=== PATIENT | male | born 1950 | race Caucasian/White ===

== ENCOUNTER 2025-03-12 02:14 | Inpatient (IN) | payer OTHER, MEDICAID ==
[~2025-03-12] VITALS: Ht 177.8 cm; Wt 77.2 kg
[2025-03-12] VITALS (10 sets, daily range): BP systolic 114–140; BP diastolic 46–91; PULSE 68–92; RESP 17–22; TEMP 97.9–98.7; O2SAT 96–99
[~2025-03-12 02:14] MED LIST: ACET-1882 PO; ALBU108A14 IN; ASPI-543 PO; BACL20TA PO; BECL40AE11 IN; CHOL500021 OR; DOCU-265 PO; FLUT1SPR5; GABA400C PO; IBUP-1456 PO; KEP500T PO; LIDO5DIS21 TOP; LINA290C OR; NORT25CA PO; ROPI0.5T26 PO; SENN-58 PO; TAMS-35 PO; TIOTCAP IN; [UNRECOGNIZED DRUG - CODE] IN
--- NOTE | 2025-03-12 02:35 | ED.PDOC ---
SOB-HPI HPI Comments HPI: 74-year-old male who came to ER by EMS for shortness of breath. Patient picked up at home, patient woke up due to sudden onset of shortness of breath, and roommate called paramedics. Was saturating at 86% on room air on scene. Was placed at 2 lpm nasal canula and it improved to 98% Past Medical History: COPD not on home oxygen, BPH, brain tumor, seizures Surgical History: C-spine surgery, lumbar spine surgery Family History: Denies Personal And Social History: Chronic tobacco and marijuana user [place]: HPI: Poor Historian. 74-year-old male presents to emergency room for evaluation of acute respiratory distress started few hours prior to arrival woke her up from his sleep. His roommate called 911. P patient initial pulse ox was 86% on room air. He was placed on 2 L nasal cannula which increase his saturation to 98%. Patient feels improvement but he is still not back to his baseline. Denies any chest pain fever or cough. : No known drug allergies REVIEW OF SYSTEMS: CONSTITUTIONAL: Denies acute: fever, diaphoresis, chills, HEAD: Denies acute: headache, photophobia Eyes: Denies acute: Double vision, vision loss, eye pain, eye discharge. EARS: Denies acute: tinnitus, hearing loss, ear discharge, ear pain, THROAT: Denies acute: sore throat, swelling, difficulty swallowing , pain with swallowin g, change in voice. NECK: Denies acute: neck pain, neck swelling, stiff neck. HEART: Denies acute : chest pain, palpitations, LUNGS: Denies acute: wheezing, cough, hemoptysis ABDOMEN: Denies acute: abdominal pain, Nausea, Vomiting, diarrhea, melena , hematemesis, hematochezia SKIN: Denies acute: rash, redness, lesions, itchiness. EXTREMITIES: Denies acute: calf pain, numbness, tingling, weakness, denies pain in extremity. Denies acute: Low back pain. Neuro: Denies acute: focal neurological deficit, motor or sensory focal neurological deficit, tremors, seizure like activity, confusion, dizziness, change in mental status, loss of bowel or bladder function, cauda equina like symptoms. : Denies acute: dysuria, hematuria, flank pain, increase in urinary frequency. PSYCH: Denies acute: hallucination, suicidal ideation, homicidal ideation. PHYSICAL EXAM: General: ----moderate----acute distress, awake and alert. Head: normocephalic, atraumatic. No raccoon's eyes, no green sign. Neck: supple, trachea is midline, no swelling. Throat: Normal phonation. Eyes:, no erythema, no purulent discharge, no proptosis, no icterus. Heart: regular rate, regular rhythm, no significant murmur appreciated. Lungs: Moderate apparent respiratory distress, No wheezing, no rhonchi, no crackles. No stridors Clear to auscultation bilaterally. Abdomen: non tender to palpation, non distended, soft, no guarding, no rebound, + bowel sounds. History of abdominal hernia Neuro: Awake, Alert, oriented to name, self, situation, follows commands GCS=15. Speech is normal. Skin: no petechia, no purpura, no cyanosis, non-pale, not jaundice. Lower extremities: --1/4 bilateral- Pitting edema no deformity, no focal swelling, no calf TTP. Makes eye contact. moves all four extremities. Face: no apparent facial droop. ED COURSE: DISCLAIMER: This medical document was created using an electronic medical record system with voice recognition software and computerized dictation system. Although this document has been carefully reviewed, there might still be some phonetic and typographical errors. Occasional wrong-word or "sound-alike" substitutions may have occurred due to the inherent limitations of voice recognition software. These areas are purely typographical due to imperfections of the software programs and do not reflect any compromise in the patient's medical care. Please read the chart carefully and recognize, using context, where these substitutions have occurred. Chief Complaint: Shortness of Breath Time Seen by MD: 02:31 Reviewed notes: Residential Subcontractor Notes, Allergies Information Source: Patient, Emergency Med Personnel Past Medical History PAST MEDICAL HISTORY: COPD EKG EKG : Pulse Rate (adult): 92 Cardiac Rhythm: NSR Was a procedure done? Was a procedure done?: No Differential Dx Differential Diagnosis: Other (DDx include ACS, unstable angina, anxiety, PE, pneumothroax, neoplasm, cardiac ischemia, COPD, asthma, CHF, pleural effusion, tobacco abuse, pneumonia, hypoxia, hypercapnia, anemia., infection/sepsis., pulmonary edema. Asthma, Cardiac tamponade, infection.) X-Ray, Labs, Meds, VS Vital Signs Date Time Temp Pulse Resp B/P (MAP) Pulse Ox O2 Delivery O2 Flow Rate FiO2 03/12/25 02:44 24 99 Nasal Cannula* 3 32 03/12/25 02:35 92 03/12/25 02:19 92 03/12/25 02:14 97.9 104 26 140/91 98 97.9 Lab Test 03/12/25 03:26 03/12/25 02:34 Range/Units Troponin I High Sensitivity 24 23 </=54 ng/L White Blood Count 14.1 H 4.4-10.8 10^3/uL Red Blood Count 4.57 4.5-5.90 10^6/uL Hemoglobin 14.8 13.5-17.5 g/dL Hematocrit 44.4 41.0-53.0 % Mean Corpuscular Volume 97.1 80.0-100.0 fL Mean Corpuscular Hemoglobin 32.4 H 28.0-32.0 pg Mean Corpuscular Hemoglobin Concent 33.4 32.0-36.0 g/dL Red Cell Distribution Width 14.1 11.8-14.3 % Platelet Count 278 140-450 10^3/uL Mean Platelet Volume 7.7 6.9-10.8 fL Neutrophils (%) (Auto) 77.7 37.0-80.0 % Lymphocytes (%) (Auto) 15.8 10.0-50.0 % Monocytes (%) (Auto) 4.9 0.0-12.0 % Eosinophils (%) (Auto) 1.3 0.0-7.0 % Basophils (%) (Auto) 0.3 0.0-2.0 % Neutrophils # (Auto) 11.0 H 1.6-8.6 10 ^3/uL Lymphocytes # (Auto) 2.2 0.4-5.4 10 ^3/uL Monocytes # (Auto) 0.7 0-1.3 10 ^3/uL Eosinophils # (Auto) 0.2 0-0.8 10 ^3/uL Basophils # (Auto) 0 0-0.2 10 ^3/uL Nucleated Red Blood Cells 0.0 % Sodium Level 143 136-145 mmol/L Potassium Level 4.8 3.5-5.1 mmol/L Chloride Level 110 H 98-107 mmol/L Carbon Dioxide Level 33 H 20-31 mmol/L Anion Gap 0 L 5-15 Blood Urea Nitrogen 11 9-23 mg/dL Creatinine 0.73 0.700-1.30 mg/dL Glomerular Filtration Rate Calc 95 >90 mL/min BUN/Creatinine Ratio 15.1 10.0-20.0 Serum Glucose 100 74-106 mg/dL Calcium Level 9.0 8.7-10.4 mg/dL Magnesium Level 2.0 1.6-2.6 mg/dL Total Bilirubin 0.4 0.2-1.0 mg/dL Aspartate Amino Transferase (AST) 20 13-40 U/L Alanine Aminotransferase (ALT) 27 7-40 U/L Alkaline Phosphatase 147 H 46-116 U/L B-Type Natriuretic Peptide 57.16 0-100 pg/mL Total Protein 6.8 5.7-8.2 g/dL Albumin 3.9 3.2-4.8 g/dL Current Medications Medications (Trade) Dose Ordered Sig/Faith Route Start Time Stop Time Status Last Admin Albuterol (Ventolin Medneb) 2.5 mg ONCE ONCE NEB 03/12/25 02:30 03/12/25 02:31 DC 03/12/25 02:44 Ipratropium [place] (Atrovent Medneb) 1 mg ONCE ONCE NEB 03/12/25 02:30 03/12/25 02:31 DC 03/12/25 02:44 Methylprednisolone Sodium Succinate (Solu Medrol) 125 mg ONCE ONCE IV 03/12/25 02:30 03/12/25 02:31 DC 03/12/25 04:[address] [address] Ph: [phone] DIAGNOSTIC IMAGING Diagnostic Imaging Report : [id number] Signed PATIENT: BUDDY MEDINA ACCT: [id number] UNIT: [id number] : 1950 LOC: ER ROOM / BED: / AGE / SEX: 74 / M ADM STATUS: REG ER SERVICE ORDERING PHYSICIAN: BRIANA RINALDI DO PROCEDURE(s): CXRP - CHEST PORTABLE REASON: sob ORDER NUMBER(s): [id number], ACCESSION NUMBER(s): [id number] CHEST RADIOGRAPH Indication: sob Technique: Single frontal view of the chest was obtained COMPARISON: CT CHEST ILD PROTOCOL on DOS: 08/20/24 FINDINGS: Lines and Tubes: None Lungs: Clear Pleura: No effusion. No pneumothorax. Cardiomediastinal contours: Unremarkable Bones: Unremarkable. Cervical spine fixation hardware. IMPRESSION: 1. No radiographic evidence of acute ATED BY: CHRISTOPHE DAY MD DICTATED DATE/TIME: 03/12/25431 SIGNED BY: CHRISTOPHE DAY MD SIGNED DATE/TIME: 03/12/25431 CC: Time of 1ST Reevaluation: 02:32 Reevaluation 1ST: Unchanged Time of 2ND Reevaluation: 04:33 (The case was discussed with the admitting team (HPI, physical exam, labs and diagnostic tests that were available at the time of disposition, ED course, treatment plan) on the phone. They agreed to evaluate the patient and make the final disposition SABRINA Zapata. ) Reevaluation 2ND: Improved Patient Education/Counseling: Diagnosis, Treatment Family Education/Counseling: No Family Present Comments MDM: patient presented with the above HPI.---dyspnea---workup was initiated. patient was found with the above mentioned diagnosis. the following medications were ordered: please refer to order lists of meds and tests obtained by myself Dr. Rinaldi. Patient ED course and VS have been stabilized. Patient has been reassessed in the ED and remained in a stable condition. Pertinent incidental findings were discussed with the patient and/or family. Patient/family voices understanding and is agreeable with plan. Patient has been observed in the ED adequate length of time to insure improvement/stability. Escalation of care considered: Consideration of escalation to observation or admission Patient was hypoxic at home. Patient was placed on supplemental oxygen which improved his pulse ox. Patient is given breathing treatment. Patient was ADMITTED to the medicine team for further evaluation and treatment of their presentation. I suspect that the admitting team my discharge the patient home with home oxygen. Please see their consultation and final disposition. All the reports of any imaging studies that were ordered by myself were reviewed by myself. SEPSIS Sepsis Screen Physician Orders Electrocardigram (03/12/25 02:24) Personal Investment Adviser (03/12/25 ) Urinalysis (03/12/25 02:25) Drug Screen (03/12/25 02:25) Chest Portable (03/12/25 02:25) Troponin-I Hs (03/12/25 05:25) Vital Signs Date Time Temp Pulse Resp B/P (MAP) Pulse Ox O2 Delivery O2 Flow Rate FiO2 03/12/25 02:44 24 99 Nasal Cannula* 3 32 03/12/25 02:35 92 03/12/25 02:19 92 03/12/25 02:14 97.9 104 26 140/91 98 97.9 Laboratory Tests Test 03/12/25 02:34 White Blood Count 14.1 10^3/uL (4.4-10.8) H Medications Medications Dose Ordered Sig/Faith Route Start Time Stop Time Status Last Admin Dose Admin Albuterol 2.5 mg ONCE ONCE NEB 03/12/25 02:30 03/12/25 02:31 DC 03/12/25 02:44 Ipratropium [place] 1 mg ONCE ONCE NEB 03/12/25 02:30 03/12/25 02:31 DC 03/12/25 02:44 Methylprednisolone Sodium Succinate 125 mg ONCE ONCE IV 03/12/25 02:30 03/12/25 02:31 DC 03/12/25 04:28 Departure 1 Departure Time of Disposition: 03:19 Impression: Primary Impression: COPD exacerbation Additional Impressions: Hypoxemia Acute respiratory distress Disposition: ADMITTED INPATIENT Admit to: [facility] Condition: Guarded Discharged With: Self Critical Care Note Critical Care Time?: Yes (45 min-critical care time only) Heart Score Heart Score: Heart Score Response (Comments) Value History Slightly Suspicious 0 EKG Normal 0 Age >65 2 Risk Factors 1 or 2 risk factors 1 Troponin Normal limit 0 Total 3 I personally scribed for BRIANA RINALDI DO ([email or web address]) on 03/12/25 at 02:34. Electronically submitted by Konrad Chou ([email or web address]). BRIANA RINALDI DO Mar 12, 2025 02:34
[2025-03-12] MEDS: IPRATROPIUM BROM 0.5 MG/2.5ML INH SOL NEB ONE (02:44)
[2025-03-12] MEDS: ALBUTEROL SULF 2.5 MG/0.5ML(0.5%) NEB SOLN NEB ONE (02:44)
[2025-03-12 02:55] LABS: Hematocrit 44.4 % (41.0-53.0); Hemoglobin 14.8 g/dL (13.5-17.5); Mean Corpuscular Hemoglobin 32.4 pg (28.0-32.0); Mean Corpuscular Volume 97.1 fL (80.0-100.0); Nucleated Red Blood Cells % 0.0 %
[2025-03-12 03:05] LABS: Alanine Aminotransferase 27 U/L (7-40); Albumin 3.9 g/dL (3.2-4.8); Anion Gap 0 (5-15); BUN/Creatinine Ratio 15.1 (10.0-20.0); Bilirubin, Total 0.4 mg/dL (0.2-1.0); Blood Urea Nitrogen 11 mg/dL (9-23); Calcium 9.0 mg/dL (8.7-10.4); Glucose 100 mg/dL (74-106); Magnesium 2.0 mg/dL (1.6-2.6); Potassium 4.8 mmol/L (3.5-5.1); Sodium 143 mmol/L (136-145); Total Protein 6.8 g/dL (5.7-8.2)
[2025-03-12 03:37] LABS: Alkaline Phosphatase 147 U/L (46-116); Carbon Dioxide 33 mmol/L (20-31); Chloride 110 mmol/L (98-107)
[2025-03-12] MEDS: methylPREDNISolone SOD SUCC 125 MG/2 ML VL IV ONE (04:28)
--- NOTE | 2025-03-12 04:35 | DVH ---
CHEST RADIOGRAPH Indication: sob Technique: Single frontal view of the chest was obtained COMPARISON: CT CHEST ILD PROTOCOL on DOS: 08/20/24 FINDINGS: Lines and Tubes: None Lungs: Clear Pleura: No effusion. No pneumothorax. Cardiomediastinal contours: Unremarkable Bones: Unremarkable. Cervical spine fixation hardware. IMPRESSION: 1. No radiographic evidence of acute
[2025-03-12] MEDS ORDERED: ONDANSETRON HCL 4 MG/2 ML VIAL IV PRN (06:15)
--- NOTE | 2025-03-12 06:18 | DVHHP2 ---
Admitting Diagnosis: Acute COPD exacerbation, acute respiratory failure with hypoxia History of Present Illness History Source: Patient Exam Limitations: No limitations HPI Mr. Yariel Pitts is a 74-year-old male with a history of COPD , BPH, Brain tumor, Seizures, c spine surgery who presents for evaluation of acute respiratory distress started few hours prior to arrival, patient woke up from his sleep. His roommate called 911. Patient initial pulse ox was 86% on room air. He was placed on 2 L nasal cannula which increase his saturation to 98%. Patient feels improvement but he is still not back to his baseline. Patient reports he was on oxygen at home but states he is a fall risk and stopped wearing his oxygen. Patient reports he smokes 1 pack of cigarettes daily. Denies any chest pain fever or cough. Home Meds Active Scripts Aspirin (Aspir-Low) 81 Mg Tab, 81 MG PO DAILY for 20 Days, #20 TAB Prov:JOANIE BARRIENTOS JEWEL HOLE DRILLER 11/16/22 Docusate Sodium (Docusate Sodium) 100 Mg Cap, 250 MG PO BID for 20 Days, #30 CAP Prov:JOANIE BARRIENTOS JEWEL HOLE DRILLER 11/16/22 Acetaminophen (Acetaminophen) 325 Mg Tab, 650 MG PO Q6HP PRN for 10 Days, #80 TAB Prov:JOANIE BARRIENTOS JEWEL HOLE DRILLER 11/16/22 Reported Medications Oxycodone W/ Acetaminophen (Percocet 5/325MG) 1 Tab Tb, 1 TAB PO TID, #90 TAB 03/12/25 Cholecalciferol (VITAMIN D) 5,000 Unit Tab, 5000 UNIT OR DAILY, TAB 11/08/22 Tiotropium [place] Monohydrate (Spiriva Handihaler) 18 Mcg Cap, 18 MCG IN DAILY, CAP 11/08/22 Tamsulosin Hcl (Flomax) 0.4 Mg Cap, 0.4 MG PO DAILY, CAP 11/08/22 Senna (Senokot) 8.6 Mg Tab, 8.6 MG PO BID, TAB 11/08/22 Ropinirole Hydrochloride (Ropinirole Hcl) 0.5 Mg Tab, 0.5 MG PO HS, TAB 11/08/22 Albuterol Sulfate (Proair Digihaler) 108 Mcg/Act Aer, 108 MCG IN PRN, AER 11/08/22 Nortriptyline Hcl (PAMELOR CAPSULE) 25 Mg Cp, 25 MG PO QPM, CAP 11/08/22 Lidocaine (LIDODERM 5% TOPICAL PATCH) 1 Patch Ph, 1 PATCH TOP UD, PATCH 11/08/22 Mometasone Furoate (Asmanex Hfa) 100 Mcg/Act Aer, 100 MCG IN BID, AER 11/08/22 Linaclotide Base (LINZESS) 290 Mcg Cap, 290 MCG OR DAILY, CAP 11/08/22 Levetiracetam (KEPPRA TABLET) 500 Mg Tb, 500 MG PO BID, TAB 11/08/22 Ibuprofen (Ibuprofen) 800 Mg Tab, 800 MG PO Q8HP, TAB 11/08/22 Gabapentin (Neurontin) 400 Mg Cap, 800 MG PO TID, CAP 11/08/22 Fluticasone Propionate (Nasal) (Flonase Allergy Relief) 50 Mcg/Act Spr, 50 MCG NA BID, SPRAY 11/08/22 Beclomethasone Dipropionate (Qvar Redihaler) 40 Mcg/Act Aer, 40 MCG IN BID, AER 11/08/22 Baclofen (Baclofen) 20 Mg Tab, 10 MG PO TID, TAB 11/08/22 Past Medical History Cardiac: No pertinent Hx Pulmonary: COPD Central Nervous System: Seizure, Other (Brain tumor) GI: No pertinent Hx Hemotology/Oncology: No pertinent Hx Hepatobiliary: No pertinent Hx Psychiatric: No pertinent Hx Musculoskeletal: No pertinent Hx Rheumotologic: No pertinent Hx Infectious Disease: No peritnent Hx ENT: No pertinent Hx Renal/: Benign prostatic enlarg. Endocrine: No pertinent Hx Dermatology: No pertinent Hx Others C-spine surgery Patient Family History: Alzheimer's disease G8 FATHER FH: pancreatic cancer G8 BROTHER FHx: cancer of ovary G8 MOTHER Smoker: 1 pack per day Alocohol: None Drugs: None Lives with: With family Domestic Violence: Neg Review of Systems Constitutional: No symptom reported Ears, Nose, & Throat: No symptom reported Eyes: No symptom reported Pulmonary/Respiratory: Dyspnea Cardiovascular: No symptom reported Gastrointestinal: No symptom reported Genitourinary: No symptom reported Musculoskeletal: No symptom reported Skin: No symptom reported Psychiatric: No symptom reported Endocrine: No symptom reported Hemotologic/Lymphatic: No symptom reported H&P Exam Vital Signs Vital Signs Date Time Temp Pulse Resp B/P (MAP) Pulse Ox O2 Delivery O2 Flow Rate FiO2 11/7/25 02:44 24 99 Nasal Cannula* 3 32 03/12/25 02:35 92 03/12/25 02:14 97.9 140/91 97.9 General Appeara: Well developed, Well nourished, Normal Appearance Head Exam: Normal inspection Neck Exam: Normal inspection, Non-tender, Normal alignment Eye Exam: bilateral eye Normal inspection, bilateral eye PERRL, bilateral eye EOMI Ear Exam: bilateral ear Auricle normal Nasal Exam: Normal inspection Mouth: Normal Inspection Pulmonary/Respiratory: Normal inspection, Decreased breath sounds Cardiovascular/Chest: Normal inspection, Regular rate, Normal Rhythm Peripheral Pulses: 2+ dorsalis pedis (R), 2+ dorsalis pedis (L), 2+ Radial (R), 2+ Radial (L) Abdominal Exam: Normal bowel sounds, Soft, No tenderness Legs: bilateral leg swelling CHEESE CUTTER Exam: Normal hearing, Normal speech, PERRL Neuro/Mental St: Alert, Oriented Appearance: Appropriate appearance, Appropriate insight Eye contact/ Speech: Cooperative, Good eye contact, Normal speech Thoughts/Psych: Normal thought pattern Skin Exam: Normal inspection, Normal color, Warm/dry SEPSIS Sepsis Screen Date sepsis recognized/suspect: Mar 12, 2025 Time Sepsis recognized/suspect: 213 Recent Procedure: No On Antibiotic Therapy: No Respiratory Rate >20: No Heart Rate >90: No Temp<36 C (96.8 F) or >38.3 C: No SBP <90 or MAP <65 mmHG: No New Acute Mental Status Change: No Is the patient on CPAP, BIPAP,: No Physician Orders Electrocardigram (03/12/25 02:24) Tow Feeder (03/12/25 ) Urinalysis (03/12/25 02:25) Drug Screen (03/12/25 02:25) Chest Portable (03/12/25 02:25) Troponin-I Hs (03/12/25 05:25) Admit (03/12/25 06:01) 2 Gm Sodium Diet (03/12/25 Breakfast) B-Type Natriuretic Peptide (03/12/25 06:01) Complete Blood Count (03/13/25 04:00) * Smoking Cessation Consult (03/12/25 ) Education - Smoking Cessation (03/12/25 06:01) Stat Ekg For Chest Pain (03/12/25 06:01) Notify Of Changes From Base (03/12/25 06:01) Cullet Crusher For 24 Hours (03/12/25 06:01) Emergency Dysrhythmia Protocol (03/12/25 06:01) Rhythm Strips Once Every Shift (03/12/25 06:01) Oxygen By Nasal Cannula (03/12/25 06:01) Ipratropium Medneb (Atrovent Medneb) (03/12/25 12:00) Albuterol Medneb (Ventolin Medneb) (03/12/25 06:15) Methylprednisolone Sod Succ (Solu Medrol (03/12/25 10:00) Ondansetron Hcl (Zofran) (03/12/25 06:15) *Consult (03/12/25 06:01) Full Code (03/12/25 06:01) * Inspector Penetrant Consult (03/12/25 ) Vital Signs Date Time Temp Pulse Resp B/P (MAP) Pulse Ox O2 Delivery O2 Flow Rate FiO2 03/12/25 02:44 24 99 Nasal Cannula* 3 32 03/12/25 02:35 92 03/12/25 02:19 92 03/12/25 02:14 97.9 104 26 140/91 98 97.9 Laboratory Tests Test 03/12/25 02:34 White Blood Count 14.1 10^3/uL (4.4-10.8) H Medications Medications Dose Ordered Sig/Faith Route Start Time Stop Time Status Last Admin Dose Admin Albuterol 2.5 mg ONCE ONCE NEB 03/12/25 02:30 03/12/25 02:31 DC 03/12/25 02:44 2.5 MG Ipratropium [place] 1 mg ONCE ONCE NEB 03/12/25 02:30 03/12/25 02:31 DC 03/12/25 02:44 1 MG Methylprednisolone Sodium Succinate 125 mg ONCE ONCE IV 03/12/25 02:30 03/12/25 02:31 DC 03/12/25 04:28 125 MG Labs/Xrays Labs Test 03/12/25 05:27 03/12/25 02:34 Range/Units White Blood Count 14.1 H 4.4-10.8 10^3/uL Red Blood Count 4.57 4.5-5.90 10^6/uL Hemoglobin 14.8 13.5-17.5 g/dL Hematocrit 44.4 41.0-53.0 % Mean Corpuscular Volume 97.1 80.0-100.0 fL Mean Corpuscular Hemoglobin 32.4 H 28.0-32.0 pg Mean Corpuscular Hemoglobin Concent 33.4 32.0-36.0 g/dL Red Cell Distribution Width 14.1 11.8-14.3 % Platelet Count 278 140-450 10^3/uL Mean Platelet Volume 7.7 6.9-10.8 fL Neutrophils (%) (Auto) 77.7 37.0-80.0 % Lymphocytes (%) (Auto) 15.8 10.0-50.0 % Monocytes (%) (Auto) 4.9 0.0-12.0 % Eosinophils (%) (Auto) 1.3 0.0-7.0 % Basophils (%) (Auto) 0.3 0.0-2.0 % Neutrophils # (Auto) 11.0 H 1.6-8.6 10 ^3/uL Lymphocytes # (Auto) 2.2 0.4-5.4 10 ^3/uL Monocytes # (Auto) 0.7 0-1.3 10 ^3/uL Eosinophils # (Auto) 0.2 0-0.8 10 ^3/uL Basophils # (Auto) 0 0-0.2 10 ^3/uL Nucleated Red Blood Cells 0.0 % Sodium Level 143 136-145 mmol/L Potassium Level 4.8 3.5-5.1 mmol/L Chloride Level 110 H 98-107 mmol/L Carbon Dioxide Level 33 H 20-31 mmol/L Anion Gap 0 L 5-15 Blood Urea Nitrogen 11 9-23 mg/dL Creatinine 0.73 0.700-1.30 mg/dL Glomerular Filtration Rate Calc 95 >90 mL/min BUN/Creatinine Ratio 15.1 10.0-20.0 Serum Glucose 100 74-106 mg/dL Calcium Level 9.0 8.7-10.4 mg/dL Magnesium Level 2.0 1.6-2.6 mg/dL Total Bilirubin 0.4 0.2-1.0 mg/dL Aspartate Amino Transferase (AST) 20 13-40 U/L Alanine Aminotransferase (ALT) 27 7-40 U/L Alkaline Phosphatase 147 H 46-116 U/L B-Type Natriuretic Peptide 57.16 0-100 pg/mL Total Protein 6.8 5.7-8.2 g/dL Albumin 3.9 3.2-4.8 g/dL Assessment/Plan Problem List: (1) COPD exacerbation (2) Acute respiratory distress (3) Hypoxemia Plan This is a 74 yo male with known history of COPD, BPH, Brain tumor, seizures, c- spine surgery who presents to the hospital with shortness of breath sudden onset. Patient found to have 1. Acute COPD exacerbation 2. Acute Respiratory failure with hypoxia 3. Leukocytosis 4. BPH 5. hx of seizures 6. hx brain tumor Plan Admit Telemetry Pulmonology consultation IV steroids Bronchodilators Supplemental oxygen to keep 02 saturations above 92% Continue home medications when reconciled Smoking Cessation education Discussed all above with patient who verbalizes agreement and understanding of care plan. All questions were answered. Discussed with supervising MD. Plan discussed with: Patient, Other Code Visit Code Visit Total Time (mins): 45 JOANIE BARRIENTOS Mar 12, 2025 06:18 OCHOA ROGERS MD Mar 12, 2025 16:15
--- NOTE | 2025-03-12 06:54 | ECG ---
[facility] Test Date: 2025-03-12 Test Time: 02:19:13 Pat Name: BUDDY MEDINA Department: [facility] ED Room: 0245T Gender: M Principal Strategist: SHIVAM : 1950 Requested By: EMERGENCY EMERGENCY Order Number: [id number] Reading MD: Aroldo Palafox Measurements Intervals [place] Rate: 92 P: 76 [place]: 183 QRS: 85 QRSD: 91 T: 58 QT: 358 QTc: 443 Interpretive Statements Sinus rhythm Probable left atrial enlargement Borderline right axis deviation Low voltage, extremity leads Baseline wander in lead(s) V1 Electronically Signed On 03-15-2025 10:55:19 PST by Aroldo Palafox Please click the below link to view image of tracing.
[2025-03-12] MEDS ORDERED: PERCOT PO (10:52)
[2025-03-12] MEDS: ENOXAPARIN SOD 40 MG/0.4 ML SYRINGE SC SCH (11:08)
[2025-03-12] MEDS: methylPREDNISolone SOD SUCC 40 MG/ML VL IV SCH (11:08)
[2025-03-12] MEDS: PANTOPRAZOLE 40 MG/10 ML VIAL INJ IV SCH (11:09)
[2025-03-12] MEDS: ALBUTEROL SULF 2.5 MG/0.5ML(0.5%) NEB SOLN NEB PRN (11:14)
[2025-03-12] MEDS: ALBUTEROL SULF 2.5 MG/0.5ML(0.5%) NEB SOLN ONE (11:15)
[2025-03-12] MEDS: IPRATROPIUM BROM 0.5 MG/2.5ML INH SOL NEB SCH (11:15)
[2025-03-12] MEDS: methylPREDNISolone SOD SUCC 40 MG/ML VL ONE (11:17)
[2025-03-12] MEDS: IPRATROPIUM BROM 0.5 MG/2.5ML INH SOL ONE (11:33)
[2025-03-12] MEDS: ACETAMINOPHEN 325 MG TAB PO PRN (18:25)
[2025-03-12] MEDS ORDERED: methylPREDNISolone SOD SUCC 40 MG/ML VL ONE (21:18)
[2025-03-12] MEDS: OXYCODONE W/ ACETAMINOPHEN 5/325MG TABLET PO PRN (22:44)
[2025-03-13] VITALS (14 sets, daily range): BP systolic 115–147; BP diastolic 58–95; PULSE 72–95; RESP 16–21; TEMP 97.6–99.2; O2SAT 93–100
--- NOTE | 2025-03-13 00:02 | DVHINCON2 ---
Date of service: Mar 12, [address] Rogers Reason for Consultation Acute hypoxic respiratory failure and COPD exacerbation. History of Present Illness A 74-year-old man with past medical history of COPD, seizures, brain tumor, and BPH who presented to ED on 03/12/25 for evaluation of acute respiratory distress starting few hours prior to arrival. Patient woke up from his sleep. His roommate called 911. Patient's initial pulse ox was 86% on room air. He was placed on 2 L nasal cannula which increased his saturation to 98%. Patient reports using home oxygen, but states he is a fall risk and stopped wearing his oxygen. Patient smokes 1 pack of cigarettes daily. Denied any chest pain, fever or cough. Patient was admitted for further care. Pulmonary consultation is requested for evaluation and management of acute hypoxic respiratory failure and COPD exacerbation. Review of Systems: 14-point review of systems negative unless otherwise noted above. Past Medical History: COPD, seizures, brain tumor, BPH Past Surgical History: C-spine surgery Medications: Reviewed. Allergies: No known drug allergies. Family History: Alzheimer's disease Pancreatic cancer Ovarian cancer Social History: Smoker, 1 PPD. No alcohol or illicit drug use. Family History: Alzheimer's disease G8 FATHER FH: pancreatic cancer G8 BROTHER FHx: cancer of ovary G8 MOTHER Allergies: Coded Allergies: NO KNOWN ALLERGIES (Unverified , 11/08/22) Home Meds Active Scripts Nebulizers (Nebulizer) Ultrason Mis, NEB XX Q6HP PRN, #1 Prov:OCHOA ROGERS MD 03/13/25 Methylprednisolone (Medrol Dosepak) 4 Mg Alvin, 4 MG PO UD, #21 TAB UAD Prov:OCHOA ROGERS MD 03/13/25 Ipratropium Kensett (Ipratropium Kensett) 0.02 % Deedee, 0.5 MG NEB Q6HR, #120 ML Prov:OCHOA ROEGRS MD 03/13/25 Albuterol Sulfate (Ventolin) 2.5 Mg/0.5 Ml Nb, 2.5 MG NEB Q4HPRN PRN for 30 Days, #120 INH Prov:OCHOA ROGERS MD 03/13/25 Aspirin (Aspir-Low) 81 Mg Tab, 81 MG PO DAILY for 20 Days, #20 TAB Prov:JOANIE BARRIENTOS LICENSED OCCUPATIONAL THERAPIST 11/16/22 Docusate Sodium (Docusate Sodium) 100 Mg Cap, 250 MG PO BID for 20 Days, #30 CAP Prov:JOANIE BARRIENTOS LICENSED OCCUPATIONAL THERAPIST 11/16/22 Acetaminophen (Acetaminophen) 325 Mg Tab, 650 MG PO Q6HP PRN for 10 Days, #80 TAB Prov:JOANIE BARRIENTOS LICENSED OCCUPATIONAL THERAPIST 11/16/22 Reported Medications Oxycodone W/ Acetaminophen (Percocet 5/325MG) 1 Tab Tb, 1 TAB PO TID, #90 TAB 03/12/25 Cholecalciferol (VITAMIN D) 5,000 Unit Tab, 5000 UNIT OR DAILY, TAB 11/08/22 Tiotropium K[place]ett Monohydrate (Spiriva Handihaler) 18 Mcg Cap, 18 MCG IN DAILY, CAP 11/08/22 Tamsulosin Hcl (Flomax) 0.4 Mg Cap, 0.4 MG PO DAILY, CAP 11/08/22 Senna (Senokot) 8.6 Mg Tab, 8.6 MG PO BID, TAB 11/08/22 Ropinirole Hydrochloride (Ropinirole Hcl) 0.5 Mg Tab, 0.5 MG PO HS, TAB 11/08/22 Albuterol Sulfate (Proair Digihaler) 108 Mcg/Act Aer, 108 MCG IN PRN, AER 11/08/22 Nortriptyline Hcl (PAMELOR CAPSULE) 25 Mg Cp, 25 MG PO QPM, CAP 11/08/22 Lidocaine (LIDODERM 5% TOPICAL PATCH) 1 Patch Ph, 1 PATCH TOP UD, PATCH 11/08/22 Mometasone Furoate (Asmanex Hfa) 100 Mcg/Act Aer, 100 MCG IN BID, AER 11/08/22 Linaclotide Base (LINZESS) 290 Mcg Cap, 290 MCG OR DAILY, CAP 11/08/22 Levetiracetam (KEPPRA TABLET) 500 Mg Tb, 500 MG PO BID, TAB 11/08/22 Gabapentin (Neurontin) 400 Mg Cap, 800 MG PO TID, CAP 11/08/22 Fluticasone Propionate (Nasal) (Flonase Allergy Relief) 50 Mcg/Act Spr, 50 MCG NA BID, SPRAY 11/08/22 Beclomethasone Dipropionate (Qvar Redihaler) 40 Mcg/Act Aer, 40 MCG IN BID, AER 11/08/22 Baclofen (Baclofen) 20 Mg Tab, 10 MG PO TID, TAB 11/08/22 Discontinued Reported Medications Ibuprofen (Ibuprofen) 800 Mg Tab, 800 MG PO Q8HP, TAB 11/08/22 Current Medications Current Medications Medications (Trade) Dose Ordered Sig/Faith Route PRN Reason Start Time Stop Time Status Last Admin Ipratropium Kensett (Atrovent Medneb) 0.5 mg Q6HR NEB 03/12/25 12:00 03/12/25 20:31 Albuterol (Ventolin Medneb) 2.5 mg Q4HPRN PRN NEB SHORTNESS OF BREATH 03/12/25 06:15 03/12/25 11:14 Methylprednisolone Sodium Succinate (Solu Medrol) 40 mg BID IV 03/12/25 10:00 03/12/25 21:28 Ondansetron HCl (Zofran) 4 mg Q6HPRN PRN IV NAUSEA / VOMITING 03/12/25 06:15 Pantoprazole Sodium (Protonix) 40 mg DAILY IV 03/12/25 10:00 03/12/25 11:09 Acetaminophen (Tylenol Tablet) 650 mg Q6HPRN PRN PO PAIN SCALE 1-3 OR TEMP>100.4 03/12/25 06:30 03/12/25 18:25 Enoxaparin Sodium (Lovenox) 40 mg DAILY SC 03/12/25 10:00 03/12/25 11:08 Oxycodone/ Acetaminophen (Percocet 5/ 325MG Tablet) 1 tab Q8HP PRN PO SEVERE PAIN (7-10 PAIN SCALE) 03/12/25 18:45 03/12/25 22:44 Vital Signs Vital Signs Date Time Temp Pulse Resp B/P (MAP) Pulse Ox O2 Delivery O2 Flow Rate FiO2 03/12/25 21:00 98.5 84 17 114/56 (75) 99 98.5 03/12/25 20:31 Nasal Cannula 4.0 03/12/25 20:31 36 Physical Exam Gen.: Patient lying in bed in no apparent distress. On supplemental oxygen. Head: Normocephalic, atraumatic. Eyes: EOMI/PERRLA. Ears: Normal hearing. Normal anatomy. Neck/trachea: Trachea midline, supple. Nose: Normal external anatomy. Mouth: Moist mucous membranes. Chest: Decreased air entry bilaterally. No wheezing or rhonchi. Cardiovascular: Positive S1, positive S2. Regular rate and rhythm. Abdomen: Positive bowel sounds in all 4 quadrants. Soft, non-tender, non- distended. : Deferred. Rectal: Deferred. Skin: Warm, dry. Intact. Extremities: 2+ radial pulses bilaterally. No lower extremity edema. Neuro: Awake, alert, oriented x3. No gross motor or sensory deficits. Cranial nerves II through XII intact. Gait not assessed. Labs/Diagnostic Data Labs Test 03/12/25 06:37 03/12/25 05:27 03/12/25 02:34 Range/Units B-Type Natriuretic Peptide 46.51 0-100 pg/mL Troponin I High Sensitivity 33 </=54 ng/L White Blood Count 14.1 H 4.4-10.8 10^3/uL Red Blood Count 4.57 4.5-5.90 10^6/uL Hemoglobin 14.8 13.5-17.5 g/dL Hematocrit 44.4 41.0-53.0 % Mean Corpuscular Volume 97.1 80.0-100.0 fL Mean Corpuscular Hemoglobin 32.4 H 28.0-32.0 pg Mean Corpuscular Hemoglobin Concent 33.4 32.0-36.0 g/dL Red Cell Distribution Width 14.1 11.8-14.3 % Platelet Count 278 140-450 10^3/uL Mean Platelet Volume 7.7 6.9-10.8 fL Neutrophils (%) (Auto) 77.7 37.0-80.0 % Lymphocytes (%) (Auto) 15.8 10.0-50.0 % Monocytes (%) (Auto) 4.9 0.0-12.0 % Eosinophils (%) (Auto) 1.3 0.0-7.0 % Basophils (%) (Auto) 0.3 0.0-2.0 % Neutrophils # (Auto) 11.0 H 1.6-8.6 10 ^3/uL Lymphocytes # (Auto) 2.2 0.4-5.4 10 ^3/uL Monocytes # (Auto) 0.7 0-1.3 10 ^3/uL Eosinophils # (Auto) 0.2 0-0.8 10 ^3/uL Basophils # (Auto) 0 0-0.2 10 ^3/uL Nucleated Red Blood Cells 0.0 % Sodium Level 143 136-145 mmol/L Potassium Level 4.8 3.5-5.1 mmol/L Chloride Level 110 H 98-107 mmol/L Carbon Dioxide Level 33 H 20-31 mmol/L Anion Gap 0 L 5-15 Blood Urea Nitrogen 11 9-23 mg/dL Creatinine 0.73 0.700-1.30 mg/dL Glomerular Filtration Rate Calc 95 >90 mL/min BUN/Creatinine Ratio 15.1 10.0-20.0 Serum Glucose 100 74-106 mg/dL Calcium Level 9.0 8.7-10.4 mg/dL Magnesium Level 2.0 1.6-2.6 mg/dL Total Bilirubin 0.4 0.2-1.0 mg/dL Aspartate Amino Transferase (AST) 20 13-40 U/L Alanine Aminotransferase (ALT) 27 7-40 U/L Alkaline Phosphatase 147 H 46-116 U/L Total Protein 6.8 5.7-8.2 g/dL Albumin 3.9 3.2-4.8 g/dL Assessment Impression: Acute hypoxic respiratory failure Dependence on supplemental oxygen Acute COPD exacerbation Seizure disorder Brain tumor Nicotine dependence Plan: Supplemental oxygen Titrate to keep O2 sats above 92%. Currently on 3 LPM NC Taper O2 as tolerated. Continue bronchodilators. Continue antibiotics IV steroids - Solu-Medrol Monitor renal function. Monitor electrolytes. Supplement as necessary. Monitor ins and outs. Smoking cessation discussed for greater than 10 minutes. GI prophylaxis - Protonix DVT prophylaxis - Lovenox. Prognosis: Poor given patient's multiple co-morbidities. Rest of plan per hospitalist and other consultants. Thank you, Dr. Rogers, for allowing me to participate in this patient's care. Further recommendations will depend on the patient's clinical course. Please do not hesitate to contact me if you have any questions or concerns. This medical document was created using an electronic medical record system with [employer] dictation system. Although these documentations are being carefully reviewed, there may still be some phonetic and typographical changes. The errors are purely typographical, due to imperfection on the software program, and do not reflect any compromise in the patient's medical care. Plan discussed with: Patient, Other (FRANCOISE Garcia/Dr. Rogers) MEL RAYMUNDO [facility] Mar 13, 2025 00:01
[2025-03-13 00:31] LABS: Urine Amorphous Crystal FEW /hpf (None Seen); Urine Protein, UAD TRACE (Negative)
[2025-03-13 01:33] LABS: Barbiturate Scree,Urine Neg (NEGATIVE); Opiate Scree,Urine Neg (NEGATIVE)
[2025-03-13 01:34] LABS: Amphetamine Screen, Urine Neg (NEGATIVE); Benzodiazephine Screen, Urine Neg (NEGATIVE); Cannabinoid Screen, Urine Pos (NEGATIVE); Cocaine Screen, Urine Neg (NEGATIVE); Phencyclidine Screen, Urine Neg (NEGATIVE)
[2025-03-13] MEDS: AZITHROMYCIN 250 MG TAB PO ONE (13:01)
[2025-03-13] MEDS: ALPRAZolam 0.25 MG TAB PO PRN (13:01)
[2025-03-13] MEDS ORDERED: IPR002IS NEB (16:43)
[2025-03-13] MEDS ORDERED: METH4PAK PO (16:43)
[2025-03-13] MEDS ORDERED: NEBUMIS40 XX (16:43)
[2025-03-13] MEDS ORDERED: ALB5IS NEB (16:43)
--- NOTE | 2025-03-13 16:46 | DVHDS2 ---
Discharge Summary Date of Admission Mar 12, 2025 at 06:01 Date of Discharge: Mar 13, 2025 Labs/Diagnostic Data: Laboratory Results Test 03/12/25 23:45 03/12/25 06:37 03/12/25 05:27 03/12/25 02:34 Urine Color Yellow (Yellow) Urine Clarity Turbid (Clear) Urine pH 8.5 (5.0-9.0) Urine Specific [place] 1.032 (1.001-1.035) Urine Protein Trace (Negative) Urine Ketones 1+ (Negative) Urine Blood Negative /uL (Negative) Urine Nitrite Negative (Negative) Urine Bilirubin Negative (Negative) Urine Urobilinogen Normal mg/dL (Negative) Urine Leukocyte Esterase Negative /uL (Negative) Urine RBC 2 /hpf (0 - 3) Urine Microscopic WBC 3 /HPF (0-3) Urine Squamous Epithelial Cells None seen /hpf (<5) Urine Amorphous Crystals Few /hpf (None Seen) Urine Bacteria None seen /hpf (None Seen) Urine Mucus Few (None Seen) Urine Glucose Normal mg/dL (Normal) Urine Opiates Screen Neg (NEGATIVE) Urine Fentanyl Screen Neg (NEGATIVE) Urine Barbiturates Screen Neg (NEGATIVE) Urine Phencyclidine Screen Neg (NEGATIVE) Urine Amphetamines Screen Neg (NEGATIVE) Urine Benzodiazepines Screen Neg (NEGATIVE) Urine Cocaine Screen Neg (NEGATIVE) Urine Cannabinoids Screen Pos (NEGATIVE) B-Type Natriuretic Peptide 46.51 pg/mL (0-100) Troponin I High Sensitivity 33 ng/L (</=54) White Blood Count 14.1 10^3/uL (4.4-10.8) Red Blood Count 4.57 10^6/uL (4.5-5.90) Hemoglobin 14.8 g/dL (13.5-17.5) Hematocrit 44.4 % (41.0-53.0) Mean Corpuscular Volume 97.1 fL (80.0-100.0) Mean Corpuscular Hemoglobin 32.4 pg (28.0-32.0) Mean Corpuscular Hemoglobin Concent 33.4 g/dL (32.0-36.0) Red Cell Distribution Width 14.1 % (11.8-14.3) Platelet Count 278 10^3/uL (140-450) Mean Platelet Volume 7.7 fL (6.9-10.8) Neutrophils (%) (Auto) 77.7 % (37.0-80.0) Lymphocytes (%) (Auto) 15.8 % (10.0-50.0) Monocytes (%) (Auto) 4.9 % (0.0-12.0) Eosinophils (%) (Auto) 1.3 % (0.0-7.0) Basophils (%) (Auto) 0.3 % (0.0-2.0) Neutrophils # (Auto) 11.0 10 ^3/uL (1.6-8.6) Lymphocytes # (Auto) 2.2 10 ^3/uL (0.4-5.4) Monocytes # (Auto) 0.7 10 ^3/uL (0-1.3) Eosinophils # (Auto) 0.2 10 ^3/uL (0-0.8) Basophils # (Auto) 0 10 ^3/uL (0-0.2) Nucleated Red Blood Cells 0.0 % Sodium Level 143 mmol/L (136-145) Potassium Level 4.8 mmol/L (3.5-5.1) Chloride Level 110 mmol/L (98-107) Carbon Dioxide Level 33 mmol/L (20-31) Anion Gap 0 (5-15) Blood Urea Nitrogen 11 mg/dL (9-23) Creatinine 0.73 mg/dL (0.700-1.30) Glomerular Filtration Rate Calc 95 mL/min (>90) BUN/Creatinine Ratio 15.1 (10.0-20.0) Serum Glucose 100 mg/dL (74-106) Calcium Level 9.0 mg/dL (8.7-10.4) Magnesium Level 2.0 mg/dL (1.6-2.6) Total Bilirubin 0.4 mg/dL (0.2-1.0) Aspartate Amino Transferase (AST) 20 U/L (13-40) Alanine Aminotransferase (ALT) 27 U/L (7-40) Alkaline Phosphatase 147 U/L (46-116) Total Protein 6.8 g/dL (5.7-8.2) Albumin 3.9 g/dL (3.2-4.8) Other Laboratory Tests 03/12/25 02:34 Brief Hx & Hospital Course: 74-year-old male with known history of COPD, BPH, history of brain tumor, seizure disorder, C-spine surgery initially was advanced with shortness of breaths patient was found to have acute hypoxic respiratory failure secondary to acute COPD exacerbation. Patient was started on Solu-Medrol med nebs O2 supplementation. Patient currently saturating more than 94% on room air. Patient being discharged under stable condition with close follow-up as an outpatient with PCP. Nicotine cessation counseling has been discussed. Condition at Discharge: Stable Final Diagnosis/Problems List 1. Acute hypoxic respiratory failure continue acute COPD 2.acute COPD exacerbation 4. Seizure disorder Discharge Disposition: Home SNF Discharge Will this Physician continue t: No Discharge Instruct/Medications Diet: Cardiac 2g Na,low cholest Activity: No Restrictions, As Tolerated Follow Up/Referral: Please follow up with PCP in 1-2 weeks Medications: Resume home medications. New Medications: Methylprednisolone (Medrol Dosepak) 4 Mg Alvin 4 MG PO UD, #21 TAB UAD Nebulizers (Nebulizer) Ultrason Mis NEB XX Q6HP PRN, #1 Albuterol Sulfate (Ventolin) 2.5 Mg/0.5 Ml Nb 2.5 MG NEB Q4HPRN PRN for 30 Days, #120 INH Ipratropium Bluebell (Ipratropium Bluebell) 0.02 % Deedee 0.5 MG NEB Q6HR, #120 ML Continued Medications: Acetaminophen (Acetaminophen) 325 Mg Tab 650 MG PO Q6HP PRN for 10 Days, #80 TAB Albuterol Sulfate (Proair Digihaler) 108 Mcg/Act Aer 108 MCG IN PRN, AER Aspirin (Aspir-Low) 81 Mg Tab 81 MG PO DAILY for 20 Days, #20 TAB Baclofen (Baclofen) 20 Mg Tab 10 MG PO TID, TAB Beclomethasone Dipropionate (Qvar Redihaler) 40 Mcg/Act Aer 40 MCG IN BID, AER Cholecalciferol (Vitamin D) 5,000 Unit Tab 5000 UNIT OR DAILY, TAB Docusate Sodium (Docusate Sodium) 100 Mg Cap 250 MG PO BID for 20 Days, #30 CAP Fluticasone Propionate (Nasal) (Flonase Allergy Relief) 50 Mcg/Act Spr 50 MCG NA BID, SPRAY Gabapentin (Neurontin) 400 Mg Cap 800 MG PO TID, CAP Levetiracetam (Keppra Tablet) 500 Mg Tb 500 MG PO BID, TAB Lidocaine (Lidoderm 5% Topical Patch) 1 Patch Ph 1 PATCH TOP UD, PATCH Linaclotide Base (Linzess) 290 Mcg Cap 290 MCG OR DAILY, CAP Mometasone Furoate (Asmanex Hfa) 100 Mcg/Act Aer 100 MCG IN BID, AER Nortriptyline Hcl (Pamelor Capsule) 25 Mg Cp 25 MG PO QPM, CAP Oxycodone W/ Acetaminophen (Percocet 5/325MG) 1 Tab Tb 1 TAB PO TID, #90 TAB Ropinirole Hydrochloride (Ropinirole Hcl) 0.5 Mg Tab 0.5 MG PO HS, TAB Senna (Senokot) 8.6 Mg Tab 8.6 MG PO BID, TAB Tamsulosin Hcl (Flomax) 0.4 Mg Cap 0.4 MG PO DAILY, CAP Tiotropium Bluebell Monohydrate (Spiriva Handihaler) 18 Mcg Cap 18 MCG IN DAILY, CAP Discontinued Medications: Ibuprofen (Ibuprofen) 800 Mg Tab 800 MG PO Q8HP, TAB Scheduled Albuterol Sulfate (Proair Digihaler), 108 MCG IN PRN, (Reported) Aspirin (Aspir-Low), 81 MG PO DAILY Baclofen (Baclofen), 10 MG PO TID, (Reported) Beclomethasone Dipropionate (Qvar Redihaler), 40 MCG IN BID, (Reported) Cholecalciferol (Vitamin D), 5,000 UNIT OR DAILY, (Reported) Docusate Sodium (Docusate Sodium), 250 MG PO BID Fluticasone Propionate (Nasal) (Flonase Allergy Relief), 50 MCG NA BID, (Reported) Gabapentin (Neurontin), 800 MG PO TID, (Reported) Ibuprofen (Ibuprofen), 800 MG PO Q8HP, (Reported) Ipratropium Bluebell (Ipratropium Bluebell), 0.5 MG NEB Q6HR Levetiracetam (Keppra Tablet), 500 MG PO BID, (Reported) Lidocaine (Lidoderm 5% Topical Patch), 1 PATCH TOP UD, (Reported) Linaclotide Base (Linzess), 290 MCG OR DAILY, (Reported) Methylprednisolone (Medrol Dosepak), 4 MG PO UD Mometasone Furoate (Asmanex Hfa), 100 MCG IN BID, (Reported) Nortriptyline Hcl (Pamelor Capsule), 25 MG PO QPM, (Reported) Oxycodone W/ Acetaminophen (Percocet 5/325MG), 1 TAB PO TID, (Reported) Ropinirole Hydrochloride (Ropinirole Hcl), 0.5 MG PO HS, (Reported) Senna (Senokot), 8.6 MG PO BID, (Reported) Tamsulosin Hcl (Flomax), 0.4 MG PO DAILY, (Reported) Tiotropium Bluebell Monohydrate (Spiriva Handihaler), 18 MCG IN DAILY, (Reported) Scheduled PRN Acetaminophen (Acetaminophen), 650 MG PO Q6HP PRN Albuterol Sulfate (Ventolin), 2.5 MG NEB Q4HPRN PRN Durable Medical Equipment Nebulizers (Nebulizer), NEB XX Q6HP PRN, (DME) Discharge Statement: "Patient was advised to return to the ER or call 911 if any headaches, dizziness, shortness of breath, chest pain, abdominal pain, bleeding, fevers, or worsening of medical condition. Patient was counseled about treatment plan, medications, possible side effects, patientverbalized understanding. All questions were answered to the best of my ability. This discharge took greater then 30 minutes in planning, reviewing documentation, counseling the patient, and discussing with other team members." ASSESSMENT ASSESSMENT Assessment 1. Acute hypoxic respiratory failure continue acute COPD 2.acute COPD exacerbation 4. Seizure disorder Date of Service: Mar 13, 2025 Billing Provider: OCHOA ROGERS MD Common Visit Codes: NOT BILLABLE OCHOA ROGERS MD Mar 13, 2025 16:46
[2025-03-13] MEDS ORDERED: FLUTICASONE PROP NASAL SPR 0.05 % (50MCG) 16GM EACHNOSTRI SCH (22:00)
--- NOTE | 2025-03-13 22:47 | DVHPN2 ---
Progress Note - Dictate Date Seen: Mar 13, 2025 Medical Necessity Reason Pt with a Central, PICC or Fol: No Subjective Patient seen and examined at bedside. Remains on supplemental oxygen Overnight events reviewed. vital signs Vital Sign Date Time Temp Pulse Resp B/P (MAP) Pulse Ox O2 Delivery O2 Flow Rate FiO2 03/13/25 16:58 99.2 93 21 147/95 (112) 93 99.2 03/13/25 11:08 Nasal Cannula* 4 36 Total Intake and Output 03/12/25 03/12/25 03/13/25 15:00 23:00 07:00 Intake Total 500 ml Balance 500 ml objective Gen.: Patient lying in bed in no apparent distress. On supplemental oxygen. Head: Normocephalic, atraumatic. Eyes: EOMI/PERRLA. Ears: Normal hearing. Normal anatomy. Neck/trachea: Trachea midline, supple. Nose: Normal external anatomy. Mouth: Moist mucous membranes. Chest: Decreased air entry bilaterally. No wheezing or rhonchi. Cardiovascular: Positive S1, positive S2. Regular rate and rhythm. Abdomen: Positive bowel sounds in all 4 quadrants. Soft, non-tender, non- distended. : Deferred. Rectal: Deferred. Skin: Warm, dry. Intact. Extremities: 2+ radial pulses bilaterally. No lower extremity edema. Neuro: Awake, alert, oriented x3. No gross motor or sensory deficits. Cranial nerves II through XII intact. Gait not assessed. laboratory and microbiology Laboratory Tests 03/12/25 02:34 Test 03/12/25 02:34 Range/Units Serum Glucose 100 74-106 mg/dL Assessment/Plan Impression: Acute hypoxic respiratory failure Dependence on supplemental oxygen Acute COPD exacerbation Seizure disorder Brain tumor Hx of nicotine dependence Events: Remains on supplemental oxygen, 3 LPM NC Taper O2 as tolerated Continue bronchodilators Continue IV steroids Continue antibiotics Incentive spirometry Protonix for GI ppx Lovenox for DVT ppx. Labs and imaging reviewed. Rest of plan as noted below. Plan: Supplemental oxygen Titrate to keep O2 sats above 92%. Continue bronchodilators. Continue antibiotics IV steroids - Solu-Medrol Monitor renal function. Monitor electrolytes. Supplement as necessary. Monitor ins and outs. GI prophylaxis - Protonix DVT prophylaxis - Lovenox. Prognosis: Poor given patient's multiple co-morbidities. Rest of plan per hospitalist and other consultants. Thank you, Dr. Perry, for allowing me to participate in this patient's care. Further recommendations will depend on the patient's clinical course. Please do not hesitate to contact me if you have any questions or concerns. This medical document was created using an electronic medical record system with [employer] dictation system. Although these documentations are being carefully reviewed, there may still be some phonetic and typographical changes. The errors are purely typographical, due to imperfection on the software program, and do not reflect any compromise in the patient's medical care. Plan discussed with: Patient, Other (FRANCOISE Flaherty) MEL RAYMUNDO [facility] Mar 13, 2025 22:47
[2025-03-14] MEDS ORDERED: AZITHROMYCIN 250 MG TAB PO SCH (10:00)
== END 2025-03-13 17:20 | disposition home or self-care (01) | DRG 189 ==
LOC: ER 02:14 → OVERFLOW 06:01 → ER 06:14 → TELE-EAST 22:26
PROVIDERS: ADMIT Internal Medicine; ATTEND Internal Medicine
DX: J96.01 Acute respiratory failure with hypoxia (principal); D49.6 Neoplasm of unspecified behavior of brain; J44.1 Chronic obstructive pulmonary disease with (acute) exacerbation; Z99.81 Dependence on supplemental oxygen; D72.829 Elevated white blood cell count, unspecified; F02.80 Dementia in other diseases classified elsewhere, unspecified severity, without behavioral disturbance, psychotic disturbance, mood disturbance, and anxiety; G40.909 Epilepsy, unspecified, not intractable, without status epilepticus; G30.9 Alzheimer's disease, unspecified; F17.210 Nicotine dependence, cigarettes, uncomplicated; N40.0 Benign prostatic hyperplasia without lower urinary tract symptoms; Z71.6 Tobacco abuse counseling; Z91.81 History of falling; Z82.0 Family history of epilepsy and other diseases of the nervous system; Z80.0 Family history of malignant neoplasm of digestive organs
CPT/HCPCS: 36415; 71045; 80053; 80307; 81001; 83735; 83880; 84484; 85025; 93005; 94640; 96372; 96374; 96375; 96376; 99291; G0378; J2470